=== PATIENT | male | born 1975 | race African-American/Black ===

== ENCOUNTER 2020-11-29 21:31 | Emergency (ER) | payer SELFPAY ==
[~2020-11-29] VITALS: Ht 175.3 cm; Wt 87.0 kg
[2020-11-30 00:06] LABS: HEMATOCRIT. 51.2 % (42.0-52.0); HEMOGLOBIN. 17.7 g/dL (14.0-18.0); MEAN CORPUSCULAR HEMOGLOBIN 32.5 pg (28.0-32.0); MEAN CORPUSCULAR VOLUME 94.1 fL (80.0-94.0); MEAN PLATELET VOLUME 7.3 fl (7.4-10.4); PLATELET 229 x1000/uL (130-400); RED BLOOD CELL COUNT 5.44 mill/uL (4.7-6.1); RED CELL DISTRIBUTION WIDTH 15.5 % (11.6-14.6)
[2020-11-30 00:12] LABS: CHLORIDE 112 mEq/L (98-107)
[2020-11-30 00:18] LABS: ETHANOL BLOOD < 10 mg/dL
[2020-11-30 01:00] LABS: CLARITY URINE CLEAR (CLEAR); COLOR URINE YELLOW (YELLOW); KETONES URINE 3+ (NEGATIVE); LEUKOCYTE ESTERASE URINE NEGATIVE (NEGATIVE); NITRITE URINE NEGATIVE (NEGATIVE); OCCULT BLOOD URINE NEGATIVE (NEGATIVE); PH URINE >=9.0 (4.5-8.0); PROTEIN URINE TRACE (NEGATIVE); SPECIFIC GRAVITY URINE 1.019 (1.005-1.030)
[2020-11-30 01:19] LABS: *AMPHETAMINES SCREEN URINE NEGATIVE (NEGATIVE); *BARBITURATES SCREEN URINE NEGATIVE (NEGATIVE); *BENZODIAZEPINES SCREEN URINE NEGATIVE (NEGATIVE)
[2020-11-30 01:20] LABS: *COCAINE SCREEN URINE NEGATIVE (NEGATIVE); CANNABINOID URINE SCREEN PRESUMTIVE POSITIVE (NEGATIVE); METHADONE URINE SCREEN NEGATIVE (NEGATIVE); OPIATES URINE SCREEN NEGATIVE (NEGATIVE); PHENCYCLIDINE URINE SCREEN NEGATIVE (NEGATIVE)
[2020-11-30 02:06] LABS: PLATELET ESTIMATE NORMAL
[2020-11-30] MEDS ORDERED: POTASSIUM CHLORIDE 20MEQ TABLET SR PO ONE (02:15)
[2020-11-30] MEDS ORDERED: LORAZEPAM 1MG TABLET PO ONE (02:45)
[2020-11-30 05:40] VITALS: BP 144/87
== END 2020-11-30 06:13 | disposition left against medical advice (07) ==
LOC: ER 21:31
DX: F23 Brief psychotic disorder (principal); R45.851 Suicidal ideations; F15.180 Other stimulant abuse with stimulant-induced anxiety disorder; Z91.19 Patient's noncompliance with other medical treatment and regimen; I44.5 Left posterior fascicular block; R94.31 Abnormal electrocardiogram [ECG] [EKG]; F12.90 Cannabis use, unspecified, uncomplicated; F17.210 Nicotine dependence, cigarettes, uncomplicated
CPT/HCPCS: 36415; 80053; 80305; 80307; 80320; 80329; 81003; 85025; 93005; 99285; G0480